=== PATIENT | female | born 1955 | race Caucasian/White ===

== ENCOUNTER 2018-11-09 17:18 | Emergency (ER) | payer SELFPAY ==
[~2018-11-09] VITALS: Ht 167.6 cm; Wt 72.0 kg
[2018-11-09] MEDS ORDERED: MORPHINE SULFATE 4 MG/ML CPJ (NOT FOR IM USE) IV STA (18:49)
[2018-11-09 19:55] LABS: BASOPHILS % 0.5 % (0.0-2.0); EOSINOPHILS % 2.8 % (0.0-5.0); HEMATOCRIT. 37.7 % (36.0-48.0); HEMOGLOBIN. 12.7 g/dL (12.0-16.0); LYMPHOCYTES % 29.6 % (20.0-50.0); MEAN CORPUSCULAR HEMOGLOBIN 30.5 pg (28.0-32.0); MEAN CORPUSCULAR VOLUME 90.3 fL (81.0-99.0); MEAN PLATELET VOLUME 8.2 fl (7.4-10.4); MONOCYTES % 6.8 % (2.0-8.0); NEUTROPHILS % 60.3 % (40.0-76.0); PLATELET 214 x1000/uL (130-400); RED BLOOD CELL COUNT 4.17 mill/uL (4.2-5.4); RED CELL DISTRIBUTION WIDTH 13.4 % (11.6-14.6)
[2018-11-09 20:04] LABS: CHLORIDE 110 mEq/L (98-107)
[2018-11-09 20:38] VITALS: BP 140/70
== END 2018-11-09 20:48 | disposition home or self-care (01) ==
LOC: ER 17:18
DX: S23.3XXA Sprain of ligaments of thoracic spine, initial encounter (principal); M62.830 Muscle spasm of back; S70.02XA Contusion of left hip, initial encounter; S70.01XA Contusion of right hip, initial encounter; V49.49XA Driver injured in collision with other motor vehicles in traffic accident, initial encounter; Y93.89 Activity, other specified; Y92.410 Unspecified street and highway as the place of occurrence of the external cause
CPT/HCPCS: 36415; 70450; 71045; 72070; 73521; 74176; 80053; 83690; 84484; 85025; 93005; 96374; 99284; J2270